=== PATIENT | female | born 1965 | race Caucasian/White ===

== ENCOUNTER 2018-03-27 09:34 | Emergency (ER) | payer BC, SELFPAY ==
[2018-03-27 09:35] VITALS: BP 161/100; PULSE 82; RESP 17; TEMP 37.3; O2SAT 95; BMI 32.5
--- NOTE | 2018-03-27 10:00 | ED.VISSUMM ---
- ER Visit Summary Date of Service: 03/27/18 Chief Complaint: Diffuse abdominal aching History of Present Illness: The patient is a 53 F past medical history of anemia and reflux. No prior abdominal surgeries. Patient states she had pain 1-2 weeks ago that resolved and then again occurred this morning at 3 AM. Associated nausea. No vomiting. No diarrhea or fever. Recently mild constipation but had relatively normal bowel movements yesterday. Denies melena but currently is on iron and her stools are dark. Denies any dysuria. Nothing particularly makes the pain better or worse. She says diffusely over her entire abdomen at times involves her flanks. No prior history. She denies any food intolerances. Physical Examination: Bone afebrile. She does not look septic or toxic. She is in no distress. H EENT exam unremarkable. Neck nontender. No lymphadenopathy. Lungs clear to auscultation bilaterally. Heart regular rhythm no murmur. Abdomen is soft, nondistended normal bowel sounds. There are no peritoneal signs. No hernias or masses. No signs of obstruction. There is no localizing tenderness to either the right upper nor the right lower quadrants. He states is diffusely uncomfortable. There is no pulsatile mass. She is moving all 4 extremities. They are neurovascularly intact. Back is nontender no CVA tenderness. Neurologically she is awake and alert with no focal motor deficits. Skin is unremarkable. Test Results: Chemistries normal. Normal gap and creatinine. Liver enzymes normal. Lipase normal. Serum test negative. Single view KUB of the abdomen shows. Consistent with constipation. No bowel obstruction. No free air. Read both by myself and the radiologist. Emergency Department Course and Treatment: Patient requested something for pain she will be given IV Toradol and Zofran IV for nausea. Treatment Plan: Repeat exam no change. No localizing tenderness. Discussed all test results and x-ray with the patient. She will be discharged with magnesium citrate. Increase her fluids. Increase her fiber. Stool softener as needed. Disposition: Discharge Impression: Acute abdominal pain secondary to constipation This note was generated with [employer] dictation software. It may contain incorrect words, spelling, and punctuation that were not noted in review of the chart prior to signing ED Disposition - Plan for ED Patient: Chief Complaint: Abd Pain Referrals: Ivana Sage MD [Primary Care Provider] -
[2018-03-27] MEDS: Ondansetron 4 MG/2 ML Vial IV (10:03)
[2018-03-27] MEDS: Ketorolac 30 MG/ML Syringe IV (10:03)
[2018-03-27 10:18] LABS: Absolute Lymphocyte Count 1.21 X10^3/ul (0.83-4.51); Absolute Neutrophil Count 9.3 X10^3/uL (2.0-7.7); Basophil# 0.02 X10^3/uL; Basophil% 0.2 % (0-1); Eosinophil# 0.02 X10^3/uL; Eosinophils% 0.2 % (0-5); Hematocrit 43.4 % (37-47); Hemoglobin 14.4 g/dl (12.0-15.0); Lymphocyte # 1.21 X10^3/ul (4.0); Lymphocyte % 11.1 % (19-41); Mean Corp Hgb Conc 33.2 g/gl (32-36); Mean Corpuscular Hgb 29.1 pg (27.0-32.0); Mean Corpuscular Volume 87.9 fL (81-99); Mean Platelet Vol. 9.7 fl (6.2-12.0); Monocyte# 0.37 X10^3/uL; Monocyte% 3.4 % (0-10); Neutrophil # 9.26 X10^3/uL (2.7-7.7); Neutrophil % 84.9 % (47-70); Platelet Count 200 K/mm3 (150-450); RBC Distribution Width CV 13.8 % (11.6-14.6); Red Blood Count 4.94 M/mm3 (4.2-5.4); White Blood Count 10.9 K/mm3 (4.4-11.0)
[2018-03-27 10:21] LABS: POSITIVE COUNT NO; POSITIVE DIFFERENTIAL NO; POSITIVE MORPHOLOGY NO
[2018-03-27 10:31] LABS: AST(SGOT) 18 U/L (15-37); Alanine Aminotransfer ALT/SGPT 37 U/L (13-56); Albumin, Serum 3.9 g/dL (3.2-5.0); Alkaline Phosphatase 96 U/L (45-117); Anion Gap 11 (5-15); BUN 17 mg/dL (7-18); BUN/Creat Ratio 23.3 RATIO (10-20); Bilirubin, Direct 0.16 mg/dL (0.00-0.30); Calcium,Total 9.4 mg/dL (8.5-10.1); Chloride 107 mmol/L (98-107); Creatinine, Serum 0.73 mg/dL (0.55-1.02); EST Glomerular Filtration Rate 88 mL/min (>60); Est Glom Filt Rate - Afr Amer 107 mL/min (>60); Estimated Creatinine Clearance 73.72 ml/min; Globulin 3.7 g/dL (2.2-4.2); Glucose 120 mg/dL (74-106); Lipase 119 U/L (73-393); Potassium 3.7 mmol/L (3.5-5.1); Protein, Total 7.6 g/dL (6.4-8.2); Sodium Level 141 mmol/L (136-145)
[2018-03-27 10:35] LABS: Mucous, Urine 0 SEEN /hpf (<or=2+)
[2018-03-27 10:39] LABS: Pregnancy, Serum, hCG Quali. NEGATIVE Negative (0-9 Nonpreg)
[2018-03-27 10:58] LABS: Color, Urine Yellow (Yellow); Glucose, Dipstick Normal (Normal); Ketone-Dipstick Negative (Negative); Leukocyte Esterase-Dipstick 25 /ul (Negative); Nitrite-Dipstick Negative (Negative); Occult Blood-Urine 10 /ul (Negative); Protein-Dipstick 15 mg/dl (Negative); Specific Gravity, Urine 1.015 (1.002-1.030); Urine Bilirubin Dipstick Negative (Negative); Urine Clarity Sl. Cloudy (Clear); Urine Urobilinogen Normal (Normal)
--- NOTE | 2018-03-27 11:18 | ED.DEP ---
ED Disposition - Plan for ED Patient: Disposition: Home or Assisted Living Chief Complaint: Abd Pain Instructions: ED Constipation Referrals: Ivana Sage MD [Primary Care Provider] - 3-5 Days if not improving Additional Instructions: Plenty of fluids, fiber and stool softener as needed. Magnesium citrate take the first bottle if no bowel movement within 2 hours take the second. Return if feeling worse.
[2018-03-27 11:23] VITALS: BP 158/95; PULSE 85; RESP 14; O2SAT 98
[2018-03-27] MEDS: Magnesium Citrate 300 ML PO (11:30)
[2018-03-27 11:34] LABS: Bacteria RARE /hpf (None Seen); Red Blood Cells-Urine 0-5 SEEN /hpf (0-5); Squamous Epithelial Cells - UA 0-5 SEEN /hpf (5-10); White Blood Cells 0-5 SEEN /hpf (0-5)
== END 2018-03-27 11:31 | disposition home or self-care (01) ==
PROVIDERS: Emergency Provider Emergency Medicine; Family Provider Internal Medicine; PCP Internal Medicine
DX: K59.00 Constipation, unspecified (principal); R10.84 Generalized abdominal pain; R11.0 Nausea; K21.9 Gastro-esophageal reflux disease without esophagitis; Z86.2 Personal history of diseases of the blood and blood-forming organs and certain disorders involving the immune mechanism
CPT/HCPCS: 74018; 80048; 80076; 81001; 83690; 84703; 85025; 96374; 96375; 99283; J2405

== ENCOUNTER 2018-04-18 03:06 | Emergency (ER) | payer BC, SELFPAY ==
[2018-04-18 03:06] VITALS: BP 160/94; PULSE 63; RESP 18; TEMP 36.4; O2SAT 96; BMI 32.4
--- NOTE | 2018-04-18 03:20 | CT_ITS ---
STUDY: CT ABDOMEN AND PELVIS WITH CONTRAST REASON FOR EXAM: Female, 53 years old. Abdominal pain RADIATION DOSAGE (If Supplied By Facility): CTDIvol = ( 16.88 ) mGy, DLP = ( 1215.16 ) mGycm TECHNIQUE: Transaxial images were obtained from the dome of the diaphragm to the symphysis pubis without oral contrast. 100ml ml of Isovue 300 contrast was administered. Sagittal and coronal images were reconstructed. Individualized dose optimization techniques were used for this CT. COMPARISON: None. FINDINGS: Bilateral dependent atelectasis at the lung bases. The visualized portions of the heart are within normal limits. Hypoattenuated lesion in the left lateral hepatic segment measuring near water density. Lipid laden stones and calcified stones seen within a nonthickened gallbladder. Normal spleen. Normal pancreas. Normal bilateral adrenal glands. Normal right kidney. Normal left kidney. Normal visualized stomach. Normal small intestine. Mild diverticular disease of the sigmoid colon without localized inflammation. The appendix is visualized and appears normal. Normal abdominal aorta. Normal inferior vena cava. Normal retroperitoneum. Normal urinary bladder. Uterus and bilateral adnexa are unremarkable. Normal abdominal wall. Normal osseous structures. CT/Abdomen/Pelvis W IV Cont ONLY IMPRESSION: 1. Cholelithiasis with no evidence of acute cholecystitis. 2. Cyst versus hemangioma within the left lateral hepatic segment. 3. Sigmoid colonic diverticulosis with no evidence of acute diverticulitis. Electronically Signed: Cesar Delgado MD at 4:12 EDT Tel , Service support ,
[2018-04-18 03:41] LABS: Absolute Lymphocyte Count 2.59 X10^3/ul (0.83-4.51); Absolute Neutrophil Count 3.8 X10^3/uL (2.0-7.7); Basophil# 0.04 X10^3/uL; Basophil% 0.6 % (0-1); Eosinophil# 0.19 X10^3/uL; Eosinophils% 2.7 % (0-5); Hematocrit 42.5 % (37-47); Hemoglobin 14.5 g/dl (12.0-15.0); Lymphocyte # 2.59 X10^3/ul (4.0); Lymphocyte % 36.5 % (19-41); Mean Corp Hgb Conc 34.1 g/gl (32-36); Mean Corpuscular Hgb 30.3 pg (27.0-32.0); Mean Corpuscular Volume 88.7 fL (81-99); Mean Platelet Vol. 9.4 fl (6.2-12.0); Monocyte# 0.44 X10^3/uL; Monocyte% 6.2 % (0-10); Neutrophil # 3.82 X10^3/uL (2.7-7.7); Neutrophil % 53.7 % (47-70); Platelet Count 170 K/mm3 (150-450); RBC Distribution Width CV 13.3 % (11.6-14.6); Red Blood Count 4.79 M/mm3 (4.2-5.4); White Blood Count 7.1 K/mm3 (4.4-11.0)
[2018-04-18 03:42] LABS: POSITIVE COUNT NO; POSITIVE DIFFERENTIAL NO; POSITIVE MORPHOLOGY NO
[2018-04-18 03:57] LABS: ALB/GLOB Ratio 1.1 RATIO (0.9-2.4); AST(SGOT) 14 U/L (15-37); Alanine Aminotransfer ALT/SGPT 30 U/L (13-56); Albumin, Serum 3.7 g/dL (3.2-5.0); Alkaline Phosphatase 94 U/L (45-117); Anion Gap 10 (5-15); BUN 20 mg/dL (7-18); BUN/Creat Ratio 22.4 RATIO (10-20); Calcium,Total 9.4 mg/dL (8.5-10.1); Chloride 107 mmol/L (98-107); Creatinine, Serum 0.89 mg/dL (0.55-1.02); EST Glomerular Filtration Rate 70 mL/min (>60); Est Glom Filt Rate - Afr Amer 85 mL/min (>60); Estimated Creatinine Clearance 60.47 ml/min; Globulin 3.5 g/dL (2.2-4.2); Glucose 101 mg/dL (74-106); Lipase 172 U/L (73-393); Potassium 3.7 mmol/L (3.5-5.1); Protein, Total 7.2 g/dL (6.4-8.2); Sodium Level 145 mmol/L (136-145)
[2018-04-18 03:59] LABS: Lactic Acid 1.1 mmol/L (0.4-2.0)
[2018-04-18] MEDS: Metoclopramide 10 MG/2 ML Vial IV (04:14)
--- NOTE | 2018-04-18 04:15 | ED.VISSUMM ---
- ER Visit Summary Date of Service: 04/18/18 Chief Complaint: Abdominal pain History of Present Illness: The patient is a 53 F who presents with abdominal pain. She states that this is the third episode recently she has had like this. She states that 2 weeks ago she was seen in the emergency department and negative labs and a negative x-ray though felt that she was having some constipation. The next day her symptoms improved. Tonight she drank some milk before bed and about 15 minutes later began to have abdominal discomfort. She describes it as an all over aching but she mostly points epigastric right upper quadrant. She said no vomiting no diarrhea. No fevers. Physical Examination: Afebrile vital signs are stable Gen: Well-nourished well-developed Head: Normocephalic atraumatic Eyes: Perrl EOMI ENT: TMs clear no rhinorrhea moist mucous membranes Neck: Supple no lymphadenopathy no JVD nontender CVS: Regular rate rhythm no murmurs normal S1-S2 Respiratory: No distress clear to auscultation bilaterally chest nontender Abdomen: Soft tenderness right upper quadrant epigastrium periumbilical without guarding or rebound nondistended normal bowel sounds no masses Back: Nontender Extremity: Nontender no edema Skin: Normal color no rash Neuro: alert orientated ?3 CN II-XII intact normal strength sensation reflexes gait cerebellar Psych: Normal affect normal mood Test Results: BC CMP and lipase were negative. CT of the pelvis demonstrates lipid and calcified gallstones. Emergency Department Course and Treatment: She received Reglan, Zofran and morphine. She will be referred to surgery for further evaluation return if worsening or concerns. Impression: 1. Cholelithiasis 2. Biliary colic This note was generated with [employer] dictation software. It may contain incorrect words, spelling, and punctuation that were not noted in review of the chart prior to signing ED Disposition - Plan for ED Patient: Disposition: Home or Assisted Living Chief Complaint: Abd Pain Instructions: Discharge Instructions for Gallstones Referrals: Cristi Warner MD [STAFF PHYSICIAN] - (CALL TO ARRANGE FOLLOW UP)
--- NOTE | 2018-04-18 04:22 | ED.DCSUM_ITS ---
- ER Visit Summary Date of Service: 04/18/18 Chief Complaint: Abdominal pain History of Present Illness: The patient is a 53 F who presents with abdominal pain. She states that this is the third episode recently she has had like this. She states that 2 weeks ago she was seen in the emergency department and negative labs and a negative x-ray though felt that she was having some constipation. The next day her symptoms improved. Tonight she drank some milk before bed and about 15 minutes later began to have abdominal discomfort. She describes it as an all over aching but she mostly points epigastric right upper quadrant. She said no vomiting no diarrhea. No fevers. Physical Examination: Afebrile vital signs are stable Gen: Well-nourished well-developed Head: Normocephalic atraumatic Eyes: Perrl EOMI ENT: TMs clear no rhinorrhea moist mucous membranes Neck: Supple no lymphadenopathy no JVD nontender CVS: Regular rate rhythm no murmurs normal S1-S2 Respiratory: No distress clear to auscultation bilaterally chest nontender Abdomen: Soft tenderness right upper quadrant epigastrium periumbilical without guarding or rebound nondistended normal bowel sounds no masses Back: Nontender Extremity: Nontender no edema Skin: Normal color no rash Neuro: alert orientated ?3 CN II-XII intact normal strength sensation reflexes gait cerebellar Psych: Normal affect normal mood Test Results: BC CMP and lipase were negative. CT of the pelvis demonstrates li pid and calcified gallstones. Emergency Department Course and Treatment: She received Reglan, Zofran and morphine. She will be referred to surgery for further evaluation return if worsening or concerns. Impression: 1. Cholelithiasis 2. Biliary colic This note was generated with [employer] dictation software. It may contain incorrect words, spelling, and punctuation that were not noted in review of the chart prior to signing ED Disposition - Plan for ED Patient: Disposition: Home or Assisted Living Chief Complaint: Abd Pain Instructions: Discharge Instructions for Gallstones Referrals: Cristi Warner MD [STAFF PHYSICIAN] - (CALL TO ARRANGE FOLLOW UP)
[2018-04-18 04:30] VITALS: PULSE 78; RESP 14; O2SAT 100
[2018-04-18] MEDS: Morphine 4 MG/ML Syringe IV (04:41)
[2018-04-18] MEDS: Ondansetron 4 MG/2 ML Vial IV (04:41)
== END 2018-04-18 04:57 | disposition home or self-care (01) ==
PROVIDERS: Emergency Provider Emergency Medicine; Family Provider Internal Medicine; PCP Internal Medicine
DX: K80.70 Calculus of gallbladder and bile duct without cholecystitis without obstruction (principal); K21.9 Gastro-esophageal reflux disease without esophagitis; Z79.899 Other long term (current) drug therapy
CPT/HCPCS: 74177; 80053; 83605; 83690; 85025; 96374; 96375; 99283; Q9967; A4216; J2405

== ENCOUNTER 2018-12-12 08:22 | Emergency (ER) | payer BC, SELFPAY ==
[2018-12-12 08:23] VITALS: BP 154/98; PULSE 79; RESP 16; TEMP 36.6; O2SAT 94; BMI 30.8
--- NOTE | 2018-12-12 08:34 | CT_ITS ---
STUDY: CTA OF THE BRAIN REASON FOR EXAM: Female, 53 years old. 3 week history of left-sided headaches and nausea. History of meningioma. RADIATION DOSAGE (If Supplied By Facility): CTDIvol = ( 28.20 ) mGy, DLP = ( 1449.88 ) mGycm TECHNIQUE: CT angiography was performed with a multi-detector CT scanner. Data acquisition was obtained from the skull base through the vertex following intravenous administration of 100 IV Isovue 370. MIP images were reconstructed from the axial data set. Post-processing of the angiographic images was performed, with multiplanar reformation and 3D reconstruction. Individualized dose optimization techniques were used for this CT. COMPARISON: None. FINDINGS: Normal bilateral petrous carotid arteries. Normal right cavernous carotid artery with a normal supraclinoid bifurcation. Normal left cavernous carotid artery with a normal supraclinoid bifurcation. Normal right A1 segments of the anterior cerebral artery. Normal left A1 segments of the anterior cerebral artery. Normal intact anterior communicating artery (ACOM). Normal bilateral A2 segments of the anterior cerebral arteries. Normal right M1 and M2 segments of the middle cerebral arteries, with a normal M1 bifurcation. Normal left M1 and M2 segments of the middle cerebral arteries, with a normal M1 bifurcation. Normal right posterior communicating artery (PCOM). Normal left posterior communicating artery (PCOM). Normal bilateral vertebral arteries. Normal basilar artery with a normal basilar bifurcation. The visualized bilateral superior cerebellar (SCA) arteries are normal. Normal bilateral P1, P2 and visualized P3 segments of the posterior cerebral arteries. There is no demonstrated aneurysm of the [place]. The patient is status post left parietal craniotomy. IMPRESSION: Normal [place] without a demonstrated aneurysm or hemodynamically significant stenosis. Electronically Signed: Christopher Fry, at 10:41 EDT , Service support , STUDY: CT BRAIN WITHOUT CONTRAST REASON FOR EXAM: Female, 53 years old. 3 week history of left-sided headaches. History of prior meningioma. RADIATION DOSAGE (If Supplied By Facility): CTDIvol = ( ) mGy, DLP = ( ) mGycm TECHNIQUE: Transaxial CT imaging of the brain was performed without administration of intravenous contrast material. Individualized dose optimization techniques were used for this CT. COMPARISON: No relevant priors. FINDINGS: Normal soft tissue structures. The patient is status post left parietal craniotomy. Normal size ventricles and extra-axial spaces for the patient's age. Normal white matter tracts of the cerebral hemispheres. Normal basal ganglia and thalami. Normal brainstem. Normal cerebellum. There is no intracranial hemorrhage. There are no findings of an acute ischemic infarction. Normal visualized paranasal sinuses. CT/CTA Head W/WO Contrast IMPRESSION: Normal unenhanced CT scan of the brain. Electronically Signed: Christopher Fry, at 10:42 EDT , Service support ,
--- NOTE | 2018-12-12 08:34 | CT_ITS ---
STUDY: CTA NECK WITH CONTRAST REASON FOR EXAM: Female, 53 years old. 3 week history of left-sided headaches. Nausea. History of prior meningioma resection. RADIATION DOSAGE (If Supplied By Facility): CTDIvol = ( 28.20 ) mGy, DLP = ( 1449.88 ) mGycm TECHNIQUE: CT angiography with multi-detector data acquisition was performed from the aortic arch to the skull base following intravenous administration of 100 IV Isovue 370. MIP images were reconstructed from the axial data set. Post-processing of the angiographic images was performed, with multiplanar reformation and 3D reconstruction. Individualized dose optimization techniques were used for this CT. COMPARISON: None. FINDINGS: AORTIC ARCH: Normal visualized aortic arch. Normal origins of the brachiocephalic, left common carotid, and left subclavian arteries. RIGHT CAROTID ARTERIES: Normal right common carotid artery (CCA). Normal right common carotid bulb. Normal origin of the right internal carotid (ICA) artery without a hemodynamically significant stenosis. Normal visualized cervical portion of the right internal carotid artery. Normal origin of the right external carotid artery (ECA). LEFT CAROTID ARTERIES: Normal left common carotid artery (CCA). Normal left common carotid bulb. Normal origin of the left internal carotid (ICA) artery without a hemodynamically significant stenosis. Normal visualized cervical portion of the left internal carotid artery. Normal origin of the left external carotid artery (ECA). VERTEBRAL ARTERIES: Normal bilateral vertebral arteries. CT/CTA Neck W/WO Contrast IMPRESSION: Normal bilateral cervical carotid and vertebral arteries. Electronically Signed: Christopher Fry, at 10:43 EDT , Service support ,
[2018-12-12] MEDS: 0.9% Normal Saline 1,000 ML 150 ML IV (08:51)
--- NOTE | 2018-12-12 09:04 | ED.DCSUM_ITS ---
- ER Visit Summary Date of Service: 12/12/18 Chief Complaint: [Headache] History of Present Illness: The patient is a 53 F [ presents the emergency department with a headache that started 3 weeks ago. Patient states she woke up with a headache 3 weeks ago. Patient states that headache seems to be worse at night and when laying flat. Patient having a hard time sleeping at night secondary to pain. Patient has been seen by the nurse practitioner in the primary care physician's office x2 and has a CT scan of her head scheduled but not for another week. Patient denies any falls or head injuries. Patient does have history of a meningioma resection from the left side of her brain about 9 years ago. She denies any recent fever or illness. Patient complains of minimal photophobia. She is had mild nausea but no vomiting. No real history of migraines. Patient did take Toradol and ibuprofen this morning so she rates her headache is mild at this time. Headache only seems to involve the left side of her head and at times will radiate into the left side of her neck.] There are times during the day where her headache completely resolves with ibuprofen. Physical Examination: [HEENT-PERRLA, EOMI. Cranial nerves II through XII grossly intact. TMs clear. Mucous membranes moist. No adenopathy. Cardiovascular-regular rate and rhythm without murmur or ectopy Lungs-clear to auscultation, chest wall stable without crepitus or subcu emphysema Abdomen-normoactive bowel sounds, soft, nontender, no rebound or rigidity, no peritoneal signs. Neuro sptq-riwdgv-bett and heel rubi testing within normal limits, negative Romberg, negative pronator drift, fundi benign Extremities-intact ?4, normal range of motion, normal pulses, atraumatic] Test Results: [CBC with differential showed a white count of 7.5, hemoglobin 14.8, hematocrit 42. Chemistries unremarkable. Sed rate was normal at 10. CTA of the brain and neck showed prior left-sided craniotomy otherwise nothing acute.] Emergency Department Course and Treatment: [Patient initially given a liter normal same fluid bolus as well as Reglan and Benadryl. Patient continued complaint of headache and was given 4 mg of morphine and another 25 mg of Benadryl. His headache did improve.] Treatment Plan: [Case was discussed with Dr. Tan who would be happy to see patient in the office for follow-up and asked that I start patient on Topamax 25 mg twice daily.] Disposition: [Discharged home in stable condition. Patient advised to return if worsening headache, difficulty with balance or speech, or condition should worsen anyway.] Impression: [Cephalgia] This note was generated with [employer] dictation software. It may contain incorrect words, spelling, and punctuation that were not noted in review of the chart prior to signing ED Disposition - Plan for ED Patient: Referrals: Ivana Sage MD [Primary Care Provider] -
[2018-12-12 09:22] LABS: Anion Gap 8 (5-15); BUN 14 mg/dL (7-18); BUN/Creat Ratio 21.8 RATIO (10-20); Calcium,Total 9.5 mg/dL (8.5-10.1); Chloride 105 mmol/L (98-107); Creatinine, Serum 0.64 mg/dL (0.55-1.02); EST Glomerular Filtration Rate 102 mL/min (>60); Est Glom Filt Rate - Afr Amer 124 mL/min (>60); Estimated Creatinine Clearance 84.09 ml/min; Glucose 106 mg/dL (74-106); Potassium 3.3 mmol/L (3.5-5.1); Sodium Level 141 mmol/L (136-145)
[2018-12-12 09:27] LABS: Erythrocyte Sedimentation Rate 10 mm/hr (0-30)
[2018-12-12 09:40] LABS: Absolute Lymphocyte Count 1.75 X10^3/ul (0.83-4.51); Absolute Neutrophil Count 5.1 X10^3/uL (2.0-7.7); Basophil# 0.02 X10^3/uL; Basophil% 0.3 % (0-1); Eosinophil# 0.18 X10^3/uL; Eosinophils% 2.4 % (0-5); Hematocrit 42.4 % (37-47); Hemoglobin 14.8 g/dl (12.0-15.0); Lymphocyte # 1.75 X10^3/ul (4.0); Lymphocyte % 23.4 % (19-41); Mean Corp Hgb Conc 34.9 g/gl (32-36); Mean Corpuscular Hgb 30.5 pg (27.0-32.0); Mean Corpuscular Volume 87.2 fL (81-99); Mean Platelet Vol. 9.5 fl (6.2-12.0); Monocyte# 0.47 X10^3/uL; Monocyte% 6.3 % (0-10); Neutrophil # 5.05 X10^3/uL (2.7-7.7); Neutrophil % 67.5 % (47-70); Platelet Count 195 K/mm3 (150-450); RBC Distribution Width SD 41.4 fl (35.1-43.9); Red Blood Count 4.86 M/mm3 (4.2-5.4); White Blood Count 7.5 K/mm3 (4.4-11.0)
[2018-12-12] MEDS: 0.9% Normal Saline 1,000 ML 999 ML IV (09:40)
[2018-12-12] MEDS: DiphenhydrAMINE 50 MG/ML Syringe 25 MG IV (09:40)
[2018-12-12 09:41] LABS: POSITIVE COUNT NO; POSITIVE DIFFERENTIAL NO; POSITIVE MORPHOLOGY NO
[2018-12-12] MEDS: Metoclopramide 10 MG/2 ML Vial IV (09:41)
--- NOTE | 2018-12-12 10:04 | ED.RN ---
PT RATES PAIN AT A 1. WOULD LIKE TO STOP FLUID FOR A BIT. FIRST BOLUS COMPLETED
--- NOTE | 2018-12-12 11:27 | ED.DEP ---
ED Disposition - Plan for ED Patient: Instructions: ED Cephalgia Unspecified Prescriptions: Topiramate [Topamax] 25 mg PO BID #30 tab Referrals: Ivana Sage MD [Primary Care Provider] - Gustavo Tan MD [STAFF PHYSICIAN] - 5-7 Days
== END 2018-12-12 12:18 | disposition home or self-care (01) ==
LOC: ED 08:50
PROVIDERS: Emergency Provider Emergency Medicine; Family Provider Internal Medicine; PCP Internal Medicine
DX: R51 Headache (principal); H53.149 Visual discomfort, unspecified; R11.0 Nausea; I10 Essential (primary) hypertension; Z86.011 Personal history of benign neoplasm of the brain; Z79.899 Other long term (current) drug therapy
CPT/HCPCS: 70496; 70498; 80048; 85025; 85652; 96361; 96374; 96375; 99283; J7030; Q9967; A4216

== ENCOUNTER 2019-05-03 09:23 | Emergency (ER) | payer BC, SELFPAY ==
[2019-05-03 09:24] VITALS: BP 155/95; PULSE 85; RESP 14; TEMP 36.2; O2SAT 97; BMI 31.6
--- NOTE | 2019-05-03 09:49 | EKG12_ITS ---
Test Reason : CP Blood Pressure : / mmHG Vent. Rate : 081 BPM Atrial Rate : 081 BPM P-R Int : 178 ms QRS Dur : 088 ms QT Int : 398 ms P-R-T Axes : 031 -09 001 degrees QTc Int : 462 ms Normal sinus rhythm Normal ECG Confirmed by SATNAM JOHNSON, OSKAR ([id number]), acquisition editor SHAILESH KATE ([id number]) on 05/09/2019 10:54:14 AM Referred By: DANAE Confirmed By:DANNA HAY MD
--- NOTE | 2019-05-03 10:03 | ED.DCSUM_ITS ---
History of Present Illness Chief Complaint: Chest Pain Detail of Chief Complaint: Right sided chest pain and shoulder pain Informant: Patient Onset: Yesterday - At approximately 1700 Context: Sudden Onset Timing: Continuous - Shoulder pain has been continuous there has been periods of no discomfort right chest Quality: Pain Location: Anterior right chest and shoulder Current Severity: Mild Maximum Severity: Moderate Worsened by: Shoulder pain worse with movement chest pain no exacerbating fac tors Relieved by: Chest pain resolved with ibuprofen shoulder pain better Associated Symptoms: No associated symptoms Narrative: Patient is a middle-age woman who presents with anterior right chest pain that started yesterday evening at 1700. She is status post cholecystectomy May 2018. She denies any URI symptoms in the past week. She denies pleuritic chest pain. Denies history of PE or DVT. She has no risk factors for either. She denies leg pain, swelling discoloration. There is no history of trauma. She has no history of shoulder problems. She states she may have injured it several years ago. She denies paresthesia, anesthesia motor weakness. She denies rash. Prior similar symptoms: No Recent Illness/Hospitalization: No - Past Medical History (1) Chronic GERD Status: Chronic (2) Intracranial meningioma Status: Chronic (3) Mixed anxiety and depressive disorder Status: Chronic Past Medical History - Allergies and Home Meds Allergies/Adverse Reactions: Allergies trazodone Adverse Reaction (Verified 05/03/19 09:24) Other GENERALIZED PAIN Primary Care Physician: Ivana Sage MD [Primary Care Provider] - Prior records reviewed: Yes Surgical History: cholecystectomy Lives: Spouse/ Significant Other Smoking Status: Never smoker Alcohol: Rare Drugs: None Review of Systems General: Denies: Chills, Fever, Subjective, Sweats Eyes: Denies: Visual changes - bilaterally, Blurred Vision - bilaterally, Diplopia ENT: Denies: Bilateral ear pain, Rhinorrhea, Sore throat Cardiovascular: Reports: Chest pain. Denies: Palpitations, Heart racing, -, - Respiratory: Denies: Dyspnea, Cough, Dyspnea on exertion Gastrointestinal: Denies: Abdominal pain, Nausea, Vomiting, Diarrhea, Melena, Hematochezia Genitourinary: Denies: Dysuria, Hematuria, Frequency Musculoskeletal: Reports: Extremity Pain. Denies: Myalgias, Arthralgias, Neck pain, Back pain, Swelling, -, - Skin: Denies: Rash, Wounds Neurological: Denies: Headache, Weakness, Numbness Hematologic: Denies: Easy bruising, Easy bleeding Allergy: Denies: Uticaria, Swelling of the mouth Physical Exam Vital Signs/Narrative: Vital Signs Temp Pulse Resp BP Pulse Ox 05/03/19 09:24 97.1 F L 85 14 155/95 H 97 Inital Vital Signs reviewed: Yes General: Well nourished, Well developed, No Acute Distress Head: Normocephalic, Atraumatic Eyes: Perrl, EOMI ENT: Moist mucous membranes, No rhinorrhea Neck: Supple, Nontender Cardiovascular: Regular rate, Regular rhythm, No murmurs, Normal S1, Normal S2 Respiratory: No distress, CTA bilaterally, Chest nontender Abdomen: Soft, Nontender, Nondistended, Normal bowel sounds Back: Nontender, Normal Inspection Extremities: Nontender, No edema, - - There is no asymmetry, swelling, discoloration, leg vein distention, palpable cords or tenderness along the distribution of the deep venous system.There is pain palpation over the right trapezius. Passive range of motion causes discomfort. Axillary, median, radial and ulnar function intact. Radial pulses palpable and 2+ Skin: Normal color, No rash Neurological: Alert, Oriented x3, Cranial nerves II-XII grossly intact, Normal Strength, Normal Sensation, Normal DTR Psychological: Normal affect, Normal Mood Diagnostic/Tx/Re-eval Laboratory Results 05/03/19 10:00 Troponin I < 0.015 - Rhythm Strip Rhythm Strip: Sinus Rhythm Rate: 78 Ectopy: None - EKG Initial EKG Interpretation: Sinus Rhythm - Sinus rhythm with a ventricular rate of 81. DE interval is 178 ms. QS duration 80 ms. QT duration 398 ms. [place] is normal. The EKG is normal. - Medical Decision Making Differential diagnosis includes noncardiac chest pain, muscle skeletal pain since she is a middle-age woman will obtain EKG and troponin to evaluate for atypical cardiac presentation. Since there is no history of trauma imaging was not obtained. With a normal EKG, normal troponin with greater than 12 hours of pain and a heart score of 1 patient can be discharged home. In my professional opinion this is not cardiac chest pain but in all likelihood muscle skeletal shoulder/chest pain. ED Disposition - Plan for ED Patient: Disposition: Home or Assisted Living Diagnosis: Right-sided chest pain, Right shoulder pain Instructions: SHOULDER PAIN (Uncertain Cause), CHEST PAIN, NonCardiac Referrals: Ivana Sage MD [Primary Care Provider] - 3-5 Days if not improving Additional Instructions: Recommend ice, rest and anti-inflammatory. If you have ibuprofen 4 tablets every 8 hours for the next 3 to 5 days. If you have Aleve, 2 tablets every 12 hours for the next 3 to 5 days
[2019-05-03 11:17] VITALS: BP 97/63; PULSE 59; RESP 12; O2SAT 98
[2019-05-03 11:31] VITALS: BP 114/71; PULSE 66; RESP 20; O2SAT 92
== END 2019-05-03 11:34 | disposition home or self-care (01) ==
PROVIDERS: Emergency Provider Emergency Medicine; Family Provider Internal Medicine; PCP Internal Medicine
DX: R07.89 Other chest pain (principal); M25.511 Pain in right shoulder; K21.9 Gastro-esophageal reflux disease without esophagitis; D32.0 Benign neoplasm of cerebral meninges; F41.8 Other specified anxiety disorders; Z79.899 Other long term (current) drug therapy
CPT/HCPCS: 84484; 93005; 99284; A4216

== ENCOUNTER → 2019-09-14 | Outpatient (CLI) | payer BC, SELFPAY ==
--- NOTE | 2019-09-14 13:00 | EMB_PTH ---
PATIENT: ONELIA BRIDGES LOC: [facility] U#:[id number] AGE/SX: 54/F ROOM: RE09/14/[address]: Dr. Fletcher Aldrich MD : 1965 BED: DIS: 09/14/2019 SPEC #: [id number] RECD: 09/14/19 15:45 STATUS: WON REPatricia #: [id number] JULEE: 09/14/19 13:[address]: Fletcher Aldrich DEPT: SURGICAL PATHOLOGY RECD BY: Mulugeta Smith ENTERED: 09/17/19 08:52 SP TYPE: ENDOM BX/C NEERU DR: Dr. Ivana Sage MD Tissues: Endometrium, NOS Procedures: Surgery Specimen Level IV HEADER OPERATION: Endometrial biopsy PRE-OP DIAGNOSIS: N95.0 TISSUE SUBMITTED: Endometrial biopsy MICROSCOPIC DIAGNOSIS Endometrial biopsy: Proliferative endometrium. SJ:felisa 09/18/19 MICROSCOPIC DESCRIPTION Slides are reviewed. GROSS DESCRIPTION Received in fixative is one container labeled with the patient's name and designated EM biopsy. The specimen consists of multiple fragments of hemorrhagic soft tissue that in aggregate measure 2.5 x 1 x 0.1 cm. The specimen is totally submitted in one cassette. / SJ:felisa 09/17/19 TC:4 CPT: 46043
[2019-09-18 12:37] LABS: HPV Reflexed? NOT INDICATED
== END | disposition home or self-care (01) ==
LOC: LABSPEC 14:03
PROVIDERS: PCP Internal Medicine; Visit Provider Obstetrics & Gynecology
DX: N95.0 Postmenopausal bleeding (principal); Z12.4 Encounter for screening for malignant neoplasm of cervix
CPT/HCPCS: 88175; 88305; G0145

== ENCOUNTER → 2020-04-28 08:42 | Outpatient (CLI) | payer BC, SELFPAY ==
[2020-04-28 10:03] LABS: Absolute Lymphocyte Count 1.69 X10^3/uL (0.83-4.51); Absolute Neutrophil Count 3.6 X10^3/uL (2.0-7.7); Basophil# 0.04 X10^3/uL; Basophil% 0.7 % (0-1); Eosinophil# 0.21 X10^3/uL; Eosinophils% 3.6 % (0-5); Hematocrit 45.1 % (37-47); Hemoglobin 14.8 g/dL (12.0-15.0); Lymphocyte # 1.69 X10^3/ul (4.0); Lymphocyte % 28.6 % (19-41); Mean Corp Hgb Conc 32.8 g/dL (32-36); Mean Corpuscular Hgb 29.9 pg (27.0-32.0); Mean Corpuscular Volume 91.1 fL (81-99); Mean Platelet Vol. 9.7 fl (6.2-12.0); Monocyte% 6.8 % (0-10); NRBC Flagged by Analyzer 0 % (0-5); Neutrophil # 3.55 X10^3/uL (2.7-7.7); Platelet Count 220 K/mm3 (150-450); RBC Distribution Width CV 13.2 % (11.6-14.6); RBC Distribution Width SD 43.9 fl (35.1-43.9); Red Blood Count 4.95 M/mm3 (4.2-5.4); White Blood Count 5.9 K/mm3 (4.4-11.0)
[2020-04-28 10:10] LABS: Erythrocyte Sedimentation Rate 3 mm/hr (0-30)
[2020-04-28 10:12] LABS: AST(SGOT) 18 U/L (15-37); Alanine Aminotransfer ALT/SGPT 44 U/L (13-56); Albumin, Serum 3.6 g/dL (3.2-5.0); Alkaline Phosphatase 86 U/L (45-117); Anion Gap 4 (5-15); BUN 12 mg/dL (7-18); BUN/Creat Ratio 16.9 RATIO (10-20); Chloride 106 mmol/L (98-107); Cholesterol 152 mg/dL (200); Creatinine, Serum 0.71 mg/dL (0.55-1.02); EST Glomerular Filtration Rate 91 mL/min (>60); Est Glom Filt Rate - Afr Amer 110 mL/min (>60); Ferritin 30 ng/mL (8-252); Globulin 3.5 g/dL (2.2-4.2); Glucose 89 mg/dL (74-106); High Density Lipoprotein 61 mg/dL; Iron 87 ug/dL (50-170); Potassium 3.6 mmol/L (3.5-5.1); Protein, Total 7.1 g/dL (6.4-8.2); Sodium Level 140 mmol/L (136-145); Thyroid Stim Hormone (TSH) 1.42 uIU/mL (0.358-3.74); Triglycerides 137 mg/dL; Very Low Density Lipoprotein 27 mg/dL (5-40)
[2020-04-28 10:33] LABS: Vitamin B12 673 pg/mL (211-911); Vitamin D,25 Hydroxy 32.8 ng/mL
== END ==
PROVIDERS: PCP Internal Medicine; Visit Provider Family Medicine
DX: D64.9 Anemia, unspecified (principal); R53.83 Other fatigue; Z13.220 Encounter for screening for lipoid disorders
CPT/HCPCS: 36415; 80053; 80061; 82306; 82607; 82728; 83540; 84443; 85025; 85652

== ENCOUNTER → 2021-04-14 12:43 | Outpatient (CLI) | payer BC, SELFPAY | PROVIDERS: PCP Internal Medicine; Referring Provider Family Medicine; Visit Provider Family Medicine | DX: Z71.89 Other specified counseling (principal) | CPT/HCPCS: 86769 ==

== ENCOUNTER → 2021-04-24 13:05 | Outpatient (CLI) | payer BC, SELFPAY ==
[2021-04-24 15:30] LABS: Hematocrit 43.3 % (37-47); Hemoglobin 14.3 g/dL (12.0-15.0); Mean Corpuscular Hgb 29.9 pg (27.0-32.0); Mean Corpuscular Volume 90.4 fL (81-99); Mean Platelet Vol. 9.7 fl (6.2-12.0); Platelet Count 208 K/mm3 (150-450); RBC Distribution Width CV 12.8 % (11.6-14.6); RBC Distribution Width SD 42.1 fl (35.1-43.9); Red Blood Count 4.79 M/mm3 (4.2-5.4); White Blood Count 5.8 K/mm3 (4.4-11.0)
[2021-04-24 15:38] LABS: Prothrombin Time (Protime)PT. 12.4 SECONDS (11.7-14.9)
[2021-04-24 15:58] LABS: Anion Gap 5 (5-15); BUN 14 mg/dL (7-18); BUN/Creat Ratio 20.9 RATIO (10-20); Calcium,Total 9.3 mg/dL (8.5-10.1); Chloride 111 mmol/L (98-107); Creatinine, Serum 0.67 mg/dL (0.55-1.02); EST Glomerular Filtration Rate 97 mL/min (>60); Est Glom Filt Rate - Afr Amer 117 mL/min (>60); Glucose 83 mg/dL (74-106); Potassium 4.1 mmol/L (3.5-5.1); Sodium Level 141 mmol/L (136-145)
== END ==
PROVIDERS: PCP Internal Medicine; Referring Provider Family Medicine; Visit Provider Family Medicine
DX: Z01.818 Encounter for other preprocedural examination (principal)
CPT/HCPCS: 36415; 80048; 85027; 85610; 85730

== ENCOUNTER 2021-05-08 05:50 | Day surgery (SDC) | payer BC, SELFPAY ==
[2021-05-08] VITALS (10 sets, daily range): BP systolic 110–142; BP diastolic 71–95; PULSE 70–86; RESP 16–18; TEMP 36.1–36.7; O2SAT 92–98; BMI 34.9
[2021-05-08] MEDS: Lactated Ringers 1,000 ML 100 ML IV ×2 (06:40→09:01)
[2021-05-08] MEDS: Cefazolin 2 GM in 0.9% Normal Saline 100 ML IV (07:26)
--- NOTE | 2021-05-08 07:30 | RAD_ITS ---
STUDY: X-RAY - LEFT ANKLE REASON FOR EXAM: Intraoperative fluoroscopy for calcaneal osteotomy. TECHNIQUE: 8 intraoperative images of the ankle/foot. COMPARISON: None. FINDINGS: There are 2 orthopedic screws transfixing a calcaneal osteotomy. 146 seconds of fluoroscopy time was used. Electronically Signed: Samuel Mary MD at 10:47 EDT Tel , Service support , RAD/Ankle min 3 Views
--- NOTE | 2021-05-08 07:30 | TESH_PTH ---
PATIENT: ONELIA BRIDGES LOC: [facility] [place] U[place][id number] AGE/SX: 56/F ROOM: RE05/08/[address]: Dr. Violetta Jordan DPM : 1965 BED: DIS: 05/08/2021 SPEC #: [id number] RECD: 05/08/21 13:04 STATUS: WON KRISTAN #: [id number] JULEE: 05/08/21 07:[address]: Violetta Jordan DEPT: SURGICAL PATHOLOGY RECD BY: Mandie Amin ENTERED: 05/08/21 13:24 SP TYPE: TENDON OTHR DR: Dr. Gaurav Chapa MD Tissues: Tendon and tendon sheath, NOS Procedures: Surgery Specimen Level III HEADER OPERATION: Lower extremity repair, tibialis tendon with internal brace PRE-OP DIAGNOSIS: Left posterior tibialis repair TISSUE SUBMITTED: Diseased posterior tibialis tendon, left lower extremity MICROSCOPIC DIAGNOSIS Diseased posterior tibialis tendon, left lower extremity: Fragments of dense fibroconnective tissue with reactive changes. DANAE:felisa 05/11/2021 MICROSCOPIC DESCRIPTION Slides are reviewed. GROSS DESCRIPTION Received in fixative is one container labeled with the patient's name and designated diseased posterior tibialis tendon, left lower extremity. The specimen consists of three pieces of perea, indurated tissue that in aggregate measure 3 x 2 x 0.3 cm. The specimen is totally submitted in one cassette. / DANAE:felisa 05/08/21 TC:5 CPT: 02409
[2021-05-08] MEDS: Bupivacaine Mpf 0.5% 30 ML VIAL (10:42)
[2021-05-08] MEDS: Lidocaine 1% (30 ml sdv) 30 ML Vial (10:42)
--- NOTE | 2021-05-08 10:50 | OP.PCM_ITS ---
Problems Associated Problem List Diagnoses (1) Left foot pain: (2) Tibialis posterior tendon tear, nontraumatic: (3) Flat foot [pes planus] (acquired), left foot: Report of Operation Date of Procedure: 05/08/21 Pre-Operative Diagnosis: Posterior tibialis tendon tear, left Symptomatic flatfoot, left foot Post-Operative Diagnosis: Posterior tibialis tendon tear and tenosynovitis, left Symptomatic flatfoot, left foot Surgery/Procedure Performed:: 1. Medial calcaneal osteotomy with internal fixation, left 2. Repair of posterior tibialis tendon tear and tenosynovectomy, left 3. Spring ligament augmentation with internal brace, left Description of Surgical Findings:: Hemostasis: Well-padded pneumatic left thigh tourniquet, 300 mmHg, 120 minutes Materials: one 7.0 FT Arthrex compression screw, one 5.0 FT Arthrex compression screw, Arthrex internal brace, 3-0 and 2-0 Vicryl, 3-0 and 4-0 nylon Specimens: Diseased posterior tibialis tendon, left Complications: None The patient tolerated the procedure and anesthesia well. The patient was transported to the PACU with vital signs stable and vascular status intact to the surgical limb. To ice and elevate for pain and inflammation management. Postoperative x-rays were reviewed prior to leaving the operating room. Deformity correction was improved with reduced Meary angle, rectus hindfoot position, and continued coverage of talar head. Internal fixation is in the desired position and trajectory. No acute injuries are noted. Postoperative orders were entered electronically. Surgeon: Violetta Jordan bilingual speech therapist: None (Won Feng DPM, PGY3) Type of Anesthesia: General and Local (Preoperative: 16 cc One-to-one mixture of 1% lidocaine plain and 0.5% Marcaine plain typical left ankle block fashion. Postoperative: 14 cc same mixture local infiltrative fashion left foot and ankle) Specimen's removed: Diseased posterior tibialis tendon, left Drains: None Estimated Blood Loss (mL): 150 mL Description of Procedure: Indications: This 56-year-old female with significant past medical history of hypertension continues to complain of progressive flatfoot deformity with pain along the inner ankle extending into the arch area. This has been progressively worsening over the past several years. She does recall she had a contralateral limb flatfoot reconstruction with repair of posterior tibial tendon many years ago. She is unable to bear weight now on the left lower extremity without pain, and has failed conservative care including bracing, exercises, rest, activity modification, shoe gear updates, and medications. Her pain is affecting her ability to complete her daily activities and she elects proceed forward with surgical intervention at this time. Her neurovascular status is intact. She does have a flexible reducible flatfoot deformity in which the midtarsal joint does appear to be stable with the subtalar joint in a neutral position. Once sedated, she was also tested with the Silfverskiold test in which pronounced equinus was not noted. She had reproducible palpation pain along the posterior tibialis tendon extending from the medial malleolus to just distal to the navicular tuberosity insertion. She does not appear to have any lateral impingement syndrome. In stance, she does have pronounced decreased medial longitudinal arch and hindfoot valgus. She does not appear to have too many toe sign. She was not also unable to perform a single-leg heel rise test due to pain and there is also no hindfoot inversion noted. Preoperative H&P were reviewed including her diagnostic data. There was no gross abnormalities noted with labs or preoperative EKG. Preoperative indications, planned procedure, benefits, risk, anticipated healing time and management were reviewed. The patient understands and elects proceed with surgery at this time. No guarantees were made. The patient understands risk and complications include but are not limited to following: pain, swelling, sc arring, need for further surgery, tendon contracture, transfer lesion, hardware failure, arthritis, need for further surgery, delayed or nonhealing, infection, blood clot, allergic reaction, loss of limb, function, or life. The informed surgical limb and consent were signed. I answered all the patient's questions. Her clearance was reviewed from her primary care physician, Dr. Chapa including history and physical exam. The patient also understands there is an inherent risk with being in the hospital and undergoing a procedure during the time of COVID-19 pandemic. The patient understands precautions are being taken to prevent transmission. This patient understands the benefits and risks of having a procedure at this time versus waiting in which the benefits are reasonable at this time. Procedure in detail: The patient was transported to the operating room via cart and placed on the operating room table in supine position. Final verification of the patient, surgery, limb designation was performed via the timeout procedure. She was bumped to allow surgical limb good exposure. A well-padded pneumatic left thigh tourniquet was placed. Preoperative antibiotics were administered by the anesthesia team. General anesthesia was initiated by the anesthesia team. The podiatry team administered the local anesthetic to the left lower extremity as noted. The left lower extremity was prepped and draped in the usual aseptic manner. An Esmarch bandage was used to exsanguinate the limb and the tourniquet was inflated at this time. The surgery began as the following: Attention was first directed to the lateral hindfoot in which an oblique incision was made over the lateral calcaneal wall through the skin. Blunt dissection was performed down to the periosteal layer of the calcaneal tuberosity taking care to identify, protect, and retract all neurovascular structures at this point and throughout the remainder of surgery. Proper osteotomy placement was confirmed with intraoperative fluoroscopy and a sagittal saw and osteotome was used to perform a medializing calcaneal osteotomy. This was shifted over approximately 8 mm and was temporarily fixated with guidewires. Next, utilizing proper AO fixation FT compression screw technique, two screws were applied to fixate this osteotomy site. Proper placement of hardware and deformity correction was confirmed with lateral and calcaneal axial foot intraoperative xrays. Next, attention was directed to the medial aspect in which a 9 cm utilitarian medial incision was made proximal to the medial malleolus extending to the navicular cuneiform joint level through the skin. Blunt dissection was performed down to the flexor retinaculum in which this was incised and tagged. Next, the sheath encapsulating the posterior tibial tendon was gently entered and the tendon was exposed. It is noted there was a longitudinal split thickness tear measuring approximately 6 cm in length extending from above the malleolus level and extending distally. The diseased bulbous tendon including the tear were ellipsed out and sent to pathology. This was repaired utilizing 4-0 nylon in a tubularized and locking manner. There was also tenosynovitis extending along this posterior tibialis tendon above the medial malleolus and this was debrided. Overall the tendon was over 70% intact and it was not deemed necessary to do a flexor digitorum longus tendon transfer. To address any spring ligament incompetency and to reduce medial column sag, a spring ligament augmentation with internal brace was performed next. This was performed according to standard protocol in which the anchors were placed into the sustentaculum perez and also to the navicular to hold the talar head in a balanced elevated position with hammock technique in relation to the navicular. The medial column was successfully reduced and secured in a balanced manner. Next the foot was taken through passive range of motion and it is noted the flexor tendons gliding smooth manner and there was no entrapment. Intraoperative fluoroscopy was used to confirm adequate deformity correction was achieved. All hardware was in the desired position and trajectory. Copious saline irrigation was performed to both sites. The flexor retinaculum was repaired with nylon suture. Next, the foot was placed in a neutral position to evaluate for any residual forefoot varus or forefoot supinatus in which neither was noted. Additional cotton osteotomy was not deemed necessary at this time. Deep closure to both sites was performed with Vicryl suture. Prior to deep closure on the lateral aspect, it is noted that the bone ledge was rasped and smoothed down. The tourniquet was deflated at this time and brisk capillary refill time was noted to all digits of the left foot. Electrocauterization was performed with direct pressure to control hemostasis. No pulsatile bleeding was noted. Next, the skin was reapproximated utilizing simple and horizontal roni ress techniques. After procedure: The patient tolerated the procedure and anesthesia well. The patient was transported to the PACU with vital signs stable and vascular status intact to the surgical limb. To ice and elevate for pain and inflammation management. Postoperative x-rays were reviewed prior to leaving the operating room as noted. She was provided with postoperative pain medication prescription and was advised on safe and proper use. She has a knee roller and crutches and will maintain a nonweightbearing status. Postoperative orders were entered electronically. She will be discharged home today. She will [facility] the [facility]. Violetta Jordan DPM, FACFAS [facility] Grafts/Implants Used: Arthrex FT compression screws and internal brace Complications None Admit VTE Documentation VTE Present on Admission: No VTE Mechan Device Prophylaxis: SCD's VTE Pharm Prophylaxis ordered?: No Reason prophylaxis not ordered:: Drug Declined by Patient and Procedure Not Indicated
--- NOTE | 2021-05-08 10:54 | DCINST_ITS ---
Discharge Instructions Diet Discharge Diet: No restrictions Activity Discharge Activity: May Shower (only if use shower bag), Use Crutches and - (use knee roller) Ice area for (Minutes): 15 (apply behind the knee. do not apply directy to the surgical foot) Weight Bearing Status: No weight bearing Keep extremity elevated above heart level: Left Leg Dressing / Incision Call your doctor if your incision/area has: Continuous Slow Oozing, Sudden Increased Bleeding, Increased Pain/ Swelling, Increased Redness, Foul Smelling Discharge and Swelling at the incision site Call your doctor if you observe: Fever of 101 or Higher, Numbness or Tingling, Calf discomfort and Uncontrolled pain Change Dressing in: do not change dressing Remove Dressing in: do not remove dressing Cleanse incision/area with: Keep Dressing Clean & Dry Follow Up Care Please Follow Up With: Violetta Jordan DPM When: [facility]. Call [phone] sooner if you have questions or concerns. Test Results: Test results from this visit will be discussed in further detail at your follow-up appointment, if applicable. Discharge Plan Admission Attending Provider: Violetta Jordan Primary Care Provider: Cruzito Chapa Discharge Orders/Prescriptions Prescriptions: New hydrocodone-acetaminophen 7.5-325 mg tablet 1 tab PO Q6H PRN (Reason: pain) 7 Days Qty: 28 RF: 0 No Action atenolol 25 MG tablet 12.5 mg PO DAILY RF: 0 omeprazole 20 MG capsule 20 mg PO QHS RF: 0 fexofenadine [Melanie] 180 mg Tablet 180 mg PO DAILY PRN (Reason: ALLERGIES) RF: 0 lisinopril 10 mg Tablet 10 mg PO DAILY RF: 0 fluticasone propionate [Flonase Allergy Relief] 50 mcg/actuation [place],Suspension 1 spray INTRANASAL DAILY PRN (Reason: ALLERGIES) RF: 0 melatonin 5 mg Capsule 5 mg PO PRN PRN (Reason: Sleep) RF: 0 Referrals / Follow Up: Ivana Sage MD [STAFF PHYSICIAN] - Disposition Disposition (needs filled in before D/C Order can be placed): Home, Self Care
--- NOTE | 2021-05-08 11:10 | RAD_ITS ---
STUDY: X-RAY - LEFT FOOT CLINICAL: Postoperative evaluation status post calcaneal osteotomy and spring ligament repair. TECHNIQUE: 3 view(s) of the foot. COMPARISON: Intraoperative images obtained earlier the same day. FINDINGS: There is a calcaneal osteotomy with 2 orthopedic screws. There is a small plantar calcaneal enthesophyte. Normal visualized subtalar, talonavicular, calcaneocuboid, tarsal and tarsometatarsal articulations. Normal metatarsi. Normal metatarsophalangeal joint of the great toe. Normal tibial and fibular sesamoid bones. Normal interphalangeal joint of the great toe. Normal phalanges of the great toe. Normal second through fifth metatarsophalangeal joints. Normal interphalangeal joints and phalanges of the lesser toes. There is an overlying splint. RAD/Foot min 3 Views IMPRESSION: Uncomplicated calcaneal osteotomy. Electronically Signed: Samuel Mary MD at 13:12 EDT Tel , Service support ,
== END 2021-05-08 14:36 | disposition home or self-care (01) ==
LOC: SDC 05:51 → AC 05:51
PROVIDERS: PCP Family Medicine; Referring Provider Podiatrist; Visit Provider Podiatrist
PROC: (CPT 28300; principal; 2021-05-08 07:15)
DX: M76.822 Posterior tibial tendinitis, left leg (principal); M21.42 Flat foot [pes planus] (acquired), left foot
CPT/HCPCS: 27626; 28300; 73610; 73630; 76000; 87426; 88304; C1713; C9803; J7120; J2405

== ENCOUNTER 2021-08-12 09:54 | Outpatient (CLI) | payer BC, SELFPAY ==
[2021-08-12 12:34] LABS: Anion Gap 6 (5-15); BUN 10 mg/dL (7-18); BUN/Creat Ratio 15.6 RATIO (10-20); Calcium,Total 9.5 mg/dL (8.5-10.1); Chloride 109 mmol/L (98-107); Creatinine, Serum 0.64 mg/dL (0.55-1.02); EST Glomerular Filtration Rate 101 mL/min (>60); Est Glom Filt Rate - Afr Amer 123 mL/min (>60); Glucose 96 mg/dL (74-106); Potassium 3.7 mmol/L (3.5-5.1); Sodium Level 139 mmol/L (136-145)
== END 2021-08-12 23:59 | disposition short-term general hospital (02) ==
LOC: MFPLAB 09:55
PROVIDERS: PCP Family Medicine; Referring Provider Family Medicine; Visit Provider Family Medicine
DX: I10 Essential (primary) hypertension (principal)
CPT/HCPCS: 36415; 80048

== ENCOUNTER 2021-11-05 15:00 | Outpatient (RCR) | payer BC, SELFPAY ==
--- NOTE | 2021-07-20 11:21 | HP.PTEVAL_ITS ---
Patient's Visit Information ONELIA BRIDGES is a 56 year old F referred to Physical Therapy by Dr. Violetta Jordan DPM with a diagnosis of L flat foot reconstruction including calcaneus osteotomy, posterior tibiali. Date of Evaluation: 07/20/21 Physical Therapist: Herbie Greer DPT - Visit Plan Frequency: 1-2x /Week Duration: 4-6 Weeks Plan: Start with ROM into DF, PF. Progress WBing to 25% in CAM with walking and functional activities. Pt. to follow up with physician on 07/27/21. Progress functional tolerance as tolerated with in WBing precautions. Pt. does have a high deductible. I gave her some ROM and stretching exercises to work on as well as slowing increasing tolerance to walking with 25% WBing with crutches. Pt to work on these for 1 week then follow up with physician and PT. - Subjective Pt. is here today for her initial evaluation with diagnosis of L flat foot reconstruction including calcaneus osteotomy, posterior tibialis tendon repair, and repair of spring ligament. Pt. reports hurting her ankle last year when she slipped on ice and twisted her ankle. She had surgery on 05/08/21. Pt. was in progressed to CAM boot ~1 week ago. She is to remain in boot until 12 weeks post op. She is currently 25% Wbing on her L foot. Pt. reports overall doing well. She denies N/T, minimal pain at rest, but does have some soreness with prolonged standing/waking. She has not done much exercises, except for wrapping and icing she has not done much. Pt. is using crutches as prescribed by physician. Pt. is hopeful to get back to all recreational walking, hiking, and normal ADL activities without limitations. - Pain L ankle Pain Intensity (Out of 10): 1 Pain Intensity Range: 0, 4 Comment: mostly at medial aspect, along post tibial incision - Objective POSTURE: Pt. has good posture in stance. Maintains proper 25% WBing in stance. PALPATION: Pt. has normal healing incisions at both medial and lateral ankle. Well healing, no signs of infection. Pt. has have some skin tightness at superior aspect of post tibial incision. No pain with palpation. Pt. did have some edema throughout foot and ankle, 1+ pitting. Improved after elevation. NEURO: Pt. has normal sensation throughout BLEs. Pt. has 2+ Achilles and Patellar tendons. ROM: R ankle full motion no issues. L ankle: AROM: DF -3deg, PF 30deg, INV 8deg, EVR 10deg. PROM: DF 0deg, PF 35deg, INV 10deg, EVR 12deg. Pt. reports no pain, just tightness at each respective sides. Normal knee ROM bilaterally. MMT: RLE 5/5 throughout. LLE: ankle: DF 4/5, PF 4/5, EVR 3/5, INV 3/5. Toe flexion 4/5, toe ext 4/5.; knee 5/5 flexion/extension. GAIT: Pt. has good ambulating in CAM boot with crutches. She maintains proper WBing throughout gait cycle. No pain noted. - Balance/Special Test Scores Lower Extremity Functional Score: 23 - Goals Goal 1:: LTG: Pt. to be I with HEP. Goal Time Frame: 4-6 Weeks Goal 2:: STG: Pt. to have increased L ankle ROM to 10deg of DF, and 45deg of PF. Goal Time Frame: 2 Weeks Goal 3:: LTG: Pt. to ambulate 150' feet with full WBing in CAM boot without increase in symptoms. Goal Time Frame: 6-8 Weeks Goal 4:: STG: Pt. to sleep throughout the night without increase in symptoms. Goal Time Frame: 2-4 Weeks Goal 5:: LTG: Pt. to have increased LLE strength to 4+/5 throughout without increase in symptoms. Goal Time Frame: 6-8 Weeks - Rehabilitation Potential Physical Therapy Diagnosis: Pt. has signs and symptoms consistent with L flat foot reconstruction including calcaneus osteotomy, posterior tibialis tendon repair, and repair of spring ligament. DOS on 05/08/21. Pt. has subsequent hypomobility, weakness, difficulty with walking and increased pain. Pt. would benefit from PT to work on the above limitations progressing back to prior level of function without limitation. Rehabilitation Potential: Excellent - Anticipated Interventions Patient/Client Instruction: Educate patient on: Condition, Plan of Care, Risk Factors, Benefits of Fitness Program For the Purpose of:: To foster healthy habits, To improve decision making, To facilitate caregiver knowledge, To improve self management, To prevent re- injury, To improve ability to perform tasks related to life management Therapeutic Exercise to Include: Strength training, Power training, Balance training, Body mechanics, Postural training, Flexibilty training, Gait and locomotor training, Passive ROM, Active ROM For the Purpose of:: To decrease pain, To decrease swelling/inflammation, To increase ROM, To improve nutrient delivery to tissue, To improve ability of physical actions for home/community/work/leisure, To improve gait and locomotor functions, To improve health of tissue, To decrease soft tissue restriction, To increase flexibility/ROM, To improve endurance TENS: Yes Cryotherapy (ice pack, ice massage): Yes Ultrasound (thermal/non thermal): Yes Vasopneumatic device: Yes For the Purpose of:: To decrease pain, To decrease swelling/inflammation, To increase ROM, To improve nutrient delivery to tissue, To increase oxygenation perfusion, To improve muscle performance and motor function Thank you for the opportunity to evaluate your patient. For Medicare and Medicare HMO plans, please review the plan of care and approve it. It will need to be FAXED BACK to us at [phone] for Medicare purposes. For Medicare only, by signing this I certify the plan of care. Please let me know if there are questions or concerns regarding this plan of care. Physician Signature: Date:
--- NOTE | 2021-09-24 07:22 | HP.PTREVAL_ITS ---
Dr. Violetta Jordan, DPM, It has been my pleasure to treat ONELIA BRIDGES over the last 7 visits for L flat foot reconstruction including calcaneus osteotomy, posterior tibiali. Please see the progress note below for an update on the physical therapy plan of care! Subjective: Pt. reports overall doing okay. Pt. arrives with ASO brace and shoe on. She continues to reports some soreness along post tib tendon path medial to malleolus. Pt. reports minimal pain in the rest of her foot//ankle. Pt. is mostly concerned about her swelling. Objective/Function: Pt. did well with strengthening and stretching today. She is progressing with all exercises. She continues to have increased swelling. She has been working a bit more and on her foot more. Pt. has improved DF today. She has been working on strengthening and stretching at home. Pt. reports feeling like her progress is slow. Pt. has improved gait pattern with decreased hyper knee extension during stance phase of gait. She ascending stairs well. She has 8deg of DF with over pressure, 6deg actively. Pt. needs to continue to stretch frequently. He strength is pretty good 4+/5 throughout, mild increase in symptoms with EVR. She does continue to have increased edema in her R foot. I continue to talk to her about compression, elevation and massage to assist with edema management. Plan Plan: Pt. to follow up with physician to determine best course of action. Balance/Gait/Functional tests - Balance/Special Test Scores Lower Extremity Functional Score: 23 Goals Goal 1:: LTG: Pt. to be I with HEP. Goal Time Frame: 4-6 Weeks Goal Progress: Progressing Goal 2:: STG: Pt. to have increased L ankle ROM to 10deg of DF, and 45deg of PF. Goal Time Frame: 2 Weeks Goal Progress: Progressing Goal 3:: LTG: Pt. to ambulate 150' feet with full WBing in CAM boot without increase in symptoms. Goal Time Frame: 6-8 Weeks Goal Progress: Goal Met Goal 4:: STG: Pt. to sleep throughout the night without increase in symptoms. Goal Time Frame: 2-4 Weeks Goal Progress: Progressing Goal 5:: LTG: Pt. to have increased LLE strength to 4+/5 throughout without increase in symptoms. Goal Time Frame: 6-8 Weeks Goal Progress: Progressing Anticipated Interventions Patient/Client Instruction: Educate patient on: Condition, Plan of Care, Risk Factors, Benefits of Fitness Program For the Purpose of:: To foster healthy habits, To improve decision making, To facilitate caregiver knowledge, To improve self management, To prevent re- injury, To improve ability to perform tasks related to life management Therapeutic Exercise to Include: Strength training, Power training, Balance training, Body mechanics, Postural training, Flexibilty training, Gait and locomotor training, Passive ROM, Active ROM For the Purpose of:: To decrease pain, To decrease swelling/inflammation, To increase ROM, To improve nutrient delivery to tissue, To improve ability of physical actions for home/community/work/leisure, To improve gait and locomotor functions, To improve health of tissue, To decrease soft tissue restriction, To increase flexibility/ROM, To improve endurance TENS: Yes Cryotherapy (ice pack, ice massage): Yes Ultrasound (thermal/non thermal): Yes Vasopneumatic device: Yes For the Purpose of:: To decrease pain, To decrease swelling/inflammation, To increase ROM, To improve nutrient delivery to tissue, To increase oxygenation perfusion, To improve muscle performance and motor function Please do not hesitate to contact me at [phone] by phone or if you have questions or concerns regarding this new plan of care! Sincerely, Herbie Greer DPT
== END 2021-11-05 19:00 | disposition home or self-care (01) ==
LOC: PT 15:00
PROVIDERS: PCP Family Medicine; Referring Provider Podiatrist; Visit Provider Podiatrist
DX: Z98.890 Other specified postprocedural states (principal)
CPT/HCPCS: 97035; 97110; 97161

== ENCOUNTER → 2022-11-29 | Outpatient (CLI) | payer BC, SELFPAY ==
--- NOTE | 2022-11-29 15:43 | RAD_ITS ---
INDICATION: SCOLIOSIS EXAMINATION/TECHNIQUE: X-RAY - XR Spine Entire Thoracic and Lumbar One View (W skull, cervical and sacral spine if peformed) 1 IMAGES COMPARISON: None. LIMITATIONS: None. FINDINGS: Mild thoracic curve convex left. No significant lumbar curve. Vertebral bodies are grossly normal configuration on this single projection. No obvious subluxation. No paravertebral soft tissue mass identified. Reticular opacities at the right lung base likely scarring or atelectasis. The lungs are not well assessed due to the technique. RAD/Scoliosis 1 view IMPRESSION: Mild thoracic scoliosis. Consider dedicated spine x-rays or MRI as clinically indicated. Electronically Signed: Mari Ng MD at 7:54 EDT ,
== END | disposition home or self-care (01) ==
LOC: MTRAD 15:42
PROVIDERS: PCP Family Medicine; Referring Provider Family Medicine; Visit Provider Family Medicine
DX: M41.9 Scoliosis, unspecified (principal)
CPT/HCPCS: 72081

== ENCOUNTER → 2023-01-04 | Outpatient (CLI) | payer BC, SELFPAY ==
[2023-01-04 13:50] LABS: Vitamin B12 447 pg/mL (211-911); Vitamin D,25 Hydroxy 61.2 ng/mL
[2023-01-04 13:54] LABS: Erythrocyte Sedimentation Rate 10 mm/hr (0-30)
[2023-01-04 13:56] LABS: Absolute Lymphocyte Count 1.72 X10^3/uL (0.83-4.51); Absolute Neutrophil Count 4.3 X10^3/uL (2.0-7.7); Basophil# 0.06 X10^3/uL; Basophil% 0.9 % (0-1); Eosinophil# 0.15 X10^3/uL; Eosinophils% 2.2 % (0-5); Hematocrit 43.1 % (37-47); Hemoglobin 14.6 g/dL (12.0-15.0); Lymphocyte # 1.72 X10^3/ul (0.83-4.51); Lymphocyte % 25.6 % (19-41); Mean Corp Hgb Conc 33.9 g/dL (32-36); Mean Corpuscular Hgb 29.4 pg (27.0-32.0); Mean Corpuscular Volume 86.9 fL (81-99); Mean Platelet Vol. 10.2 fl (6.2-12.0); Monocyte# 0.43 X10^3/uL; Monocyte% 6.4 % (0-10); NRBC Flagged by Analyzer 0 % (0-5); Neutrophil # 4.32 X10^3/uL (2.7-7.7); Neutrophil % 64.5 % (47-70); Platelet Count 227 K/mm3 (150-450); RBC Distribution Width CV 13.2 % (11.6-14.6); Red Blood Count 4.96 M/mm3 (4.2-5.4); White Blood Count 6.7 K/mm3 (4.4-11.0)
[2023-01-04 13:59] LABS: ALB/GLOB Ratio 0.9 RATIO (0.9-2.4); AST(SGOT) 20 U/L (15-37); Alanine Aminotransfer ALT/SGPT 46 U/L (13-56); Albumin, Serum 3.6 g/dL (3.2-5.0); Alkaline Phosphatase 94 U/L (45-117); Anion Gap 6 (5-15); BUN 11 mg/dL (7-18); BUN/Creat Ratio 16.9 RATIO (10-20); CRP 4.35 mg/L (0.0-3.0); Calcium,Total 9.3 mg/dL (8.5-10.1); Chloride 108 mmol/L (98-107); Creatinine, Serum 0.65 mg/dL (0.55-1.02); EST Glomerular Filtration Rate 99 mL/min (>60); Est Glom Filt Rate - Afr Amer 120 mL/min (>60); Ferritin 34 ng/mL (8-252); Free T3 2.8 pg/mL (2.18-3.98); Globulin 3.8 g/dL (2.2-4.2); Glucose 93 mg/dL (74-106); Potassium 3.5 mmol/L (3.5-5.1); Protein, Total 7.4 g/dL (6.4-8.2); Rheumatoid Factor < 10.0 IU/mL (<15); Sodium Level 141 mmol/L (136-145); T4 Free Direct 1.83 ng/dL (0.76-1.46); Thyroid Stim Hormone (TSH) 1.54 uIU/mL (0.358-3.74)
[2023-01-06 14:09] LABS: ANTINUCLEAR ANTIBODIES DIRECT Negative (Negative)
[2023-01-06 15:08] LABS: Thyroglobulin Antibody < 1.0 IU/mL (0.0-0.9); Thyroid Peroxidase AB < 9 IU/mL (0-34)
== END | disposition home or self-care (01) ==
LOC: MFPLAB 09:47
PROVIDERS: PCP Family Medicine; Visit Provider Family Medicine
DX: M79.10 Myalgia, unspecified site (principal); I10 Essential (primary) hypertension; R53.83 Other fatigue
CPT/HCPCS: 36415; 80053; 82306; 82607; 82728; 83036; 84439; 84443; 84481; 85025; 85652; 86038; 86140; 86376; 86431; 86800

== ENCOUNTER 2023-01-26 10:00 | Outpatient (RCR) | payer BC, SELFPAY ==
--- NOTE | 2022-09-28 10:27 | HP.PTEVAL ---
Patient's Visit Information ONELIA BRIDGES is a 57 year old F referred to Physical Therapy by Ana Luisa Patel with a diagnosis of Left Osteotomy Calcaneus and Left Granados Osteotomy : 08/05/22.. Date of Evaluation: 09/28/22 Physical Therapist: Laura Luna DPT - Visit Plan Frequency: 2x /Week Duration: 4 Weeks Plan: CAM Boot at home- gentle WB in shoe in clinic for weight shift and LIGHT exercise. seated HR/TR, proprioception from sitting with progression as tolerated, GENTLE! HEP Given IE: Ankle ROM, Gastroc Stretch with towel, weight shifts - Subjective Flat foot with pressure on Tibial Tendon- 2 years ago was having tendonitis and fell on the ice and it tore- went in locally and they ended up doing a osteotomy on the heel and repaired the tendon- did rehab it just never really got better- long story short went to [facility] and Dr. Tate did a Left Osteotomy Calcaneus and Left Granados Osteotomy DOS: 08/05/22. She was NWB until about a week ago Tuesday- so crutches and knee rollator. Now she has the okay to be WBAT. She can walk some in the CAM boot and weaning off the crutch. Does not sleep in the boot- not disturbed. Since she started walking she has more soreness in the heel and occasional pain on the inside tendon and if she moves a certain way on the outside. Worst: 10 Agg: being up on it. Eases: elevation, ice, rest, Advil/Tylenol PRN. Best: 07/27. Describes the pain as more dull and achy pains. Does have some zing pains- Does have some N/T in the lateral 3 toes- comes and goes. Does not radiate up the chain to the knee, hip or back. She is very busy has a special needs daughter. More active prior to all of these issues. Work: does not work outside of her home. PMHx: HTN Meds: hydrochlorothiazide. - Objective Posture: FH, RS- can correct but does not maintain. Gait: antalgic- decreased stance on the left LE with poor heel/toe pattern- CAM boot and axillary crutch. HR/TR: can lift toes SLS: weight shift but does not take hands off plinth due to imbalance. Observation: incision healing well no s/s of infection. Edema: Figure 8: 52.5 cm, Mets:21.5 Malls: 27.5 cm . ROM: DF: 5 degrees 10 degrees with over pressure, PF: 40 degrees, Inver: 20 degrees Ever: 20 degrees. Strength: Knee: 4+/5, Ankle: 4+/5. Flex: HS: severe, Solues: severe. Sensation: WNL to gross touch. Palpation: tender along medial and lateral malleolus - Balance/Special Test Scores Lower Extremity Functional Score: 24 - Goals Goal 1:: Patient will be I with HEP and progression Goal Time Frame: 4-6 Weeks Goal 2:: Patient will ambulate >300 feet with a normalized gait pattern Goal Time Frame: 4-6 Weeks Goal 3:: Patient will SLS for 15 sec without LOB Goal Time Frame: 4-6 Weeks Goal 4:: Patient will report 80% improvement Goal Time Frame: 4-6 Weeks - Rehabilitation Potential Physical Therapy Diagnosis: Patient presents with hypomobility- she has decreased LE ROM, strength, proprioception, flex and muscular endurance leading to abnormal gait pattern s/p Left Osteotomy Calcaneus and Left Granados Osteotomy 08/05/22. Rehabilitation Potential: Good - Anticipated Interventions Patient/Client Instruction: Educate patient on: Benefits of Fitness Program Therapeutic Exercise to Include: Strength training, Endurance training, Balance training, Coordination, Agility training, Body mechanics, Postural training, Flexibilty training, Gait and locomotor training, Neuromotor development, Dynamic Lumbar Stabilization, Scapular Strength/Stabilization For the Purpose of:: To improve muscle performance and motor function TENS: Yes Cryotherapy (ice pack, ice massage): Yes Thermo therapy (hot pack): Yes Thank you for the opportunity to evaluate your patient. For Medicare and Medicare HMO plans, please review the plan of care and approve it. It will need to be FAXED BACK to us at [phone] for Medicare purposes. For Medicare only, by signing this I certify the plan of care. Please let me know if there are questions or concerns regarding this plan of care. Physician Signature: Date:
--- NOTE | 2022-10-27 10:59 | HP.PTREVAL ---
RUKHSANA CAMPOVERDE, It has been my pleasure to treat ONELIA BRIDGES over the last 8 visits for Left Osteotomy Calcaneus and Left Granados Osteotomy : 08/05/22.. Please see the progress note below for an update on the physical therapy plan of care! Subjective: Patient reports that she feels that she is doing decent. Saw 2 weeks ago and the bone is healed- she has pain in the AM on the lateral aspect and more medial side since she has been out of the boot. When she is going out and about she is wearing the ankle brace. 09/24. Objective/Function: Posture: FH, RS- can correct but does not maintain. Gait: slightly antalgic- decreased stance on the left LE with poor heel/toe pattern- brace/tennis shoe and no AD HR/TR: able with UE A SLS: weight shift but does not take hands off wall due to imbalance. Observation: incision healing well no s/s of infection. Edema: Figure 8: 53 cm, Mets: 21 Malls: 27 cm . ROM: DF: 5 degrees 10 degrees with over pressure, PF: 40 degrees, Inver: 20 degrees Ever: 20 degrees. Strength: Knee: 4+/5, Ankle: 4+/5. Flex: HS: severe, Solues: severe. Sensation: WNL to gross touch. Palpation: tender along medial and lateral malleolus Plan Plan: 10/27/22: 60 min apt with focus on full LE and core strength/stabilization, gait and proprioception- US for pain mgmt and inflammation control. IE: CAM Boot at home- gentle WB in shoe in clinic for weight shift and LIGHT exercise. seated HR/TR, proprioception from sitting with progression as tolerated, GENTLE! Balance/Gait/Functional tests - Balance/Special Test Scores Lower Extremity Functional Score: 39 Goals Goal 1:: Patient will be I with HEP and progression Goal Time Frame: 4-6 Weeks Goal 2:: Patient will ambulate >300 feet with a normalized gait pattern Goal Time Frame: 4-6 Weeks Goal 3:: Patient will SLS for 15 sec without LOB Goal Time Frame: 4-6 Weeks Goal 4:: Patient will report 80% improvement Goal Time Frame: 4-6 Weeks Anticipated Interventions Patient/Client Instruction: Educate patient on: Benefits of Fitness Program Therapeutic Exercise to Include: Strength training, Endurance training, Balance training, Coordination, Agility training, Body mechanics, Postural training, Flexibilty training, Gait and locomotor training, Neuromotor development, Dynamic Lumbar Stabilization, Scapular Strength/Stabilization For the Purpose of:: To improve muscle performance and motor function TENS: Yes Cryotherapy (ice pack, ice massage): Yes Thermo therapy (hot pack): Yes Please do not hesitate to contact me at [phone] by phone or if you have questions or concerns regarding this new plan of care! Sincerely, SUBHASH DobsonT
--- NOTE | 2023-01-26 11:28 | HP.PTDCSUM ---
Discharge Summary D/C summary: It has been my pleasure to treat ONELIA BRIDGES referred by RUKHSANA CAMPOVERDE, with the diagnosis of Left Osteotomy Calcaneus and Left Granados Osteotomy DOS: 08/05/22. for a total of 18 visit(s). Discharge Date: 01/26/23 Please see the following information for a summary of their discharge status. Subjective Subjective: Pt. reports ankle is doing well. She is still having some L sided low back pain, especially with working out side. Pain Left ankle: Pain Intensity (Out of 10): 0 Thoracic spine: Pain Intensity (Out of 10): 1 Lumbar spine: Pain Intensity (Out of 10): 1 Overall Improvement % Improvement: 85 Objective Objective/Function: Pt's ankle is overall doing well. She has good ROM and good strength. Her posture and gait has also improved. Pt. reports minimal issues with her ankle. She does have some issues with her upper lumbar/lower thoracic spine with increased activities. It appears to be more muscular in nature. I gave her some exercises to work on mobility and strengthening. She is also to progress with a walking program with her ankle and LE strengthening. She plans to do so in local gym. Goals Goal 1:: Patient will be I with HEP and progression Goal Progress: Goal Met Goal 2:: Patient will ambulate >300 feet with a normalized gait pattern Goal Progress: Goal Met Goal 3:: Patient will SLS for 15 sec without LOB Goal Progress: Goal Met Goal 4:: Patient will report 80% improvement Goal Progress: Goal Met Plan Plan: Pt. to be DC from PT at this point in time. D/C Information Discharge Comments: Pt. was treated with ankle ROM then with strengthening for her post surgical ankle. Pt. is doing much better and is not c/o issues at this point in time. She is to start and progress her walking program and gym exercises as tolerated. Pt. to be DC from PT at this point in time. d/c sentence: If there are questions or concerns regarding this patient's physical therapy, please feel free to call me at [phone]. Thank you for the referral of this patient. Sincerely, Herbie Cummings Sipos, DPT Balance/Gait/Functional tests Balance/Special Test Scores Lower Extremity Functional Score: 61
== END 2023-01-26 12:53 | disposition home or self-care (01) ==
LOC: PT 10:00
PROVIDERS: PCP Family Medicine
DX: M76.822 Posterior tibial tendinitis, left leg (principal); Z98.890 Other specified postprocedural states
CPT/HCPCS: 97035; 97110; 97161; 97164

== ENCOUNTER 2023-10-14 16:00 | Outpatient (RCR) | payer BC, SELFPAY ==
--- NOTE | 2023-08-23 13:40 | HP.PTEVAL_ITS ---
Patient's Visit Information Visit Information Visit Information: ONELIA BRIDGES is a 58 year old F referred to Physical Therapy by Dr. Brad Tate MD with a diagnosis of L ankle pain with Achilles tendonosis. Date of Evaluation: 08/23/23 Physical Therapist: Herbie Greer DPT Visit Plan Frequency: 1-2x /Week Duration: 6 Weeks Plan: 1) IASTM/STM to L achilles tendon/gastroc 2) Gentle joint mobs to increase L ankle DF 3) OKC L ankle eccentrics...progress to WB eccentric/pre-gait act as appropriate 4) Address foot intrinsic and hip strength prn to normalize gait pattern Focus on pain management and calming down pain, then begin gentle eccentric strengthening and stability ex. L ankle fairly stiff, should address before doing heavy WBing strength act. Subjective Subjective: Pt presents to PT with L ankle pain. Pt began walking more in 2022 after getting out of walking boot and has been attempting to do exercises, rest, and ice for pain but has not been able to get rid of. Pt points to L Achilles where majority of pain is, swelling and tight. Surgeon felt joint was thick, will do an MRI if not better in 6 weeks. Pain is worst when walking, low at first and then will increase and is much more noticeable after approx. 15 minutes. Stairs feel choppy. Pt has been doing heel raises at home, if does a few days in a row then it becomes irritated. Pt feels tennis shoes rub and increase pain, backless shoes. Pain Left Ankle: Pain Intensity (Out of 10): 2 Pain Intensity Range: 0 and 7 Objective Objective: ROM: L ankle DF 5, PF 40, INV 20, EV 20 MMT: 4/5 L ankle strength, some pain with standing heel raises, unable to perform unilateral HR on L SLS: 3s L, 5s R with medial/lateral LOB GAIT: lacking heel-toe pattern on L side, little to no ant/ tibial translation JOINT MOBILITY: hypomobile L ankle, felt stretch with post talocrural grade 2 joint mob STAIRS: reciprocal pattern, pain with push off during ascending and controlled descent on L ankle PALPATION: some mild edema in medial/lateral ankle, mild thickening/tightness of L achilles, TTPL achilles sup to distal insertion Balance/Special Test Scores Lower Extremity Functional Score: 43 Goals Goal 1:: Pt will amb. 300+ ft with <2/10 pain and normalized gait pattern Goal Time Frame: 4-6 Weeks Goal 2:: Pt will achieve at least 15 deg. 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 Pt would benefit from PT services to address pain, decreased tissue extensibility, L ankle hypomobility, and eccentric strength of plantar flexors needed to improve tolerance to walking and ADLs. Rehabilitation Potential: Good Anticipated Interventions Patient/Client Instruction: Educate patient on: Condition and Plan of Care For the Purpose of:: To decrease pain, To decrease swelling/inflammation, To increase ROM, To improve nutrient delivery to tissue, To improve muscle performance and motor function, To improve ability to perform ADL's, To increase tolerance to activity/condition/position, To improve performance and independence with ADL's, To improve ability of physical actions for home/community/work/leisure, To improve gait and locomotor functions, To improve health of tissue, To decrease soft tissue restriction, To increase flexibility/ROM, To improve balance, To assume or resume ADL's, To reduce risk of recurrence, To improve health and function, To improve self management, To improve ability to perform tasks related to life management and To improve tolerance to ADL's Therapeutic Exercise to Include: Strength training, Balance training and Passive ROM For the Purpose of:: To decrease pain, To decrease swelling/inflammation, To increase ROM, To improve ability to perform ADL's, To increase tolerance to activity/condition/position, To improve health of tissue, To decrease soft tissue restriction, To increase flexibility/ROM and To improve tolerance to ADL's Manual Therapy Techniques to Include: Mobilization, Passive ROM and Soft tissue mobilization For the Purpose of:: To decrease pain, To decrease swelling/inflammation, To increase ROM, To improve health of tissue, To decrease soft tissue restriction, To increase flexibility/ROM, To improve self management, To improve ability to perform tasks related to life management and To improve tolerance to ADL's Iontophoresis (with Dexamethozone, with Acetic acid): Yes TENS: Yes Cryotherapy (ice pack, ice massage): Yes Ultrasound (thermal/non thermal): Yes For the Purpose of:: To decrease pain, To decrease swelling/inflammation, To inc rease ROM, To improve muscle performance and motor function, To improve ability to perform ADL's, To increase tolerance to activity/condition/position, To improve health of tissue, To decrease soft tissue restriction, To increase flexibility/ROM, To improve self management and To improve tolerance to ADL's Text: Thank you for the opportunity to evaluate your patient. For Medicare and Medicare HMO plans, please review the plan of care and approve it. It will need to be FAXED BACK to us at [phone] for Medicare purposes. For Medicare only, by signing this I certify the plan of care. Please let me know if there are questions or concerns regarding this plan of care. Physician Signature: Date:
--- NOTE | 2023-09-21 10:46 | HP.PTREVAL ---
Re-Evaluation Intro: Dr. Brad Tate MD, It has been my pleasure to treat ONELIA BRIDGES over the last 6 visits for L ankle pain with Achilles tendonosis. Please see the progress note below for an update on the physical therapy plan of care! Subjective Subjective: Pt reports some improvement in sxs but is still having difficulty with walking. Pt has some relief with wearing a heel, can feel it when wearing tennis shoes to grocery store. Pt is getting up to 5 or 6/10 at worst when walking. Objective Objective/Function: ROM: L ankle DF to neutral with pull in calf, slight increase following stretching, 5 deg active EV, 20deg active IV, 50 deg PF GAIT: normalized pattern, pain with toe off of L foot PALPATION: some tenderness in distal achilles Pt overall demo's decreased pain and irritability with WB act, but still greatly limited by tightness in calf/ankle. Plan Plan Plan: 1) IASTM/STM to L achilles tendon/gastroc 2) Gentle joint mobs to increase L ankle DF 3) OKC L ankle eccentrics...progress to WB eccentric/pre-gait act as appropriate 4) Address foot intrinsic and hip strength prn to normalize gait pattern Pt to continue 1x per week for 4 weeks, working on low level strengthening and dynamic stability once full ROM has returned. Balance/Gait/Functional tests Balance/Special Test Scores Lower Extremity Functional Score: 43 Goals Goals Goal 1:: Pt will amb. 300+ ft with <2/10 pain and normalized gait pattern Goal Time Frame: 4-6 Weeks Goal Progress: Progressing Goal 2:: Pt will achieve at least 15 deg. 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 with <2/10 pain and appropriate ankle ROM Goal Time Frame: 4-6 Weeks Goal Progress: Goal Met Anticipated Interventions Anticipated Interventions Patient/Client Instruction: Educate patient on: Condition and Plan of Care For the Purpose of:: To decrease pain, To decrease swelling/inflammation, To increase ROM, To improve nutrient delivery to tissue, To improve muscle performance and motor function, To improve ability to perform ADL's, To increase tolerance to activity/condition/position, To improve performance and independence with ADL's, To improve ability of physical actions for home/community/work/leisure, To improve gait and locomotor functions, To improve health of tissue, To decrease soft tissue restriction, To increase flexibility/ROM, To improve balance, To assume or resume ADL's, To reduce risk of recurrence, To improve health and function, To improve self management, To improve ability to perform tasks related to life management and To improve tolerance to ADL's Therapeutic Exercise to Include: Strength training, Balance training and Passive ROM For the Purpose of:: To decrease pain, To decrease swelling/inflammation, To increase ROM, To improve ability to perform ADL's, To increase tolerance to activity/condition/position, To improve health of tissue, To decrease soft tissue restriction, To increase flexibility/ROM and To improve tolerance to ADL's Manual Therapy Techniques to Include: Mobilization, Passive ROM and Soft tissue mobilization For the Purpose of:: To decrease pain, To decrease swelling/inflammation, To increase ROM, To improve health of tissue, To decrease soft tissue restriction, To increase flexibility/ROM, To improve self management, To improve ability to perform tasks related to life management and To improve tolerance to ADL's Iontophoresis (with Dexamethozone, with Acetic acid): Yes TENS: Yes Cryotherapy (ice pack, ice massage): Yes Ultrasound (thermal/non thermal): Yes For the Purpose of:: To decrease pain, To decrease swelling/inflammation, To increase ROM, To improve muscle performance and motor function, To improve ability to perform ADL's, To increase tolerance to activity/condition/position, To improve health of tissue, To decrease soft tissue restriction, To increase flexibility/ROM, To improve self management and To improve tolerance to ADL's Re-Evaluation Ending Re-evaluation ending: Please do not hesitate to contact me at [phone] by phone or if you have questions or concerns regarding this new plan of care! Sincerely, Herbie Greer DPT
== END 2023-10-14 19:00 | disposition home or self-care (01) ==
LOC: PT 16:00
PROVIDERS: PCP Family Medicine; Referring Provider Orthopaedic Surgery; Visit Provider Orthopaedic Surgery
DX: M76.61 Achilles tendinitis, right leg (principal)
CPT/HCPCS: 97110; 97140; 97161; 97164; 97530

== ENCOUNTER → 2024-08-09 | Outpatient (CLI) | payer BC, SELFPAY ==
--- NOTE | 2024-08-09 16:28 | MRI_ITS ---
STUDY: MRI LEFT KNEE REASON FOR EXAM: Female, 59 years old. Left knee pain. Anterior pain, slipped and fell on knee approximately one and half years ago. TECHNIQUE: Standardized fat and water weighted pulse sequences were obtained in all 3 orthogonal planes. COMPARISON: None. FINDINGS: Normal medial meniscus. Normal hyaline cartilage of the medial femorotibial compartment. Normal medial femoral condyle and tibial plateau. Normal medial collateral ligamentous complex (MCL). Normal distal semimembranosus, gracilis and semitendinosus tendons. Normal lateral meniscus. Normal hyaline cartilage of the lateral femorotibial compartment. Normal lateral femoral condyle and tibial plateau. Normal proximal tibiofibular articulation. Normal lateral collateral (fibular) ligament. Normal popliteus tendon. Normal biceps femoris tendon. Normal anterior cruciate ligament (ACL). Normal posterior cruciate ligament (PCL). There is focal moderate grade chondromalacia along the patellar apex with underlying subchondral edema/cyst formation (axial T2 series 2 images 9-10). Congruent patellofemoral articulation. Normal medial and lateral patellar retinaculum. Normal quadriceps tendon. Normal patellar tendon. Normal Hoffa''s fat pad. There is a tiny joint effusion. There is a tiny popliteal cyst. The soft tissues are unremarkable. The otherwise visualized osseous structures are unremarkable. 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 Tiny joint effusion with a tiny popliteal cyst. No discrete meniscal tear or acute ligamentous injury. Electronically Signed: Julio Mixon MD at 8:06 EST ,
== END | disposition home or self-care (01) ==
PROVIDERS: PCP Family Medicine; Referring Provider Family Medicine; Visit Provider Family Medicine
DX: M25.562 Pain in left knee (principal)
CPT/HCPCS: 73721

== ENCOUNTER → 2024-08-30 | Outpatient (CLI) | payer BC, SELFPAY ==
[2024-08-30 08:09] LABS: Absolute Lymphocyte Count 2.11 X10^3/uL (0.83-4.51); Absolute Neutrophil Count 5.7 X10^3/uL (2.0-7.7); Basophil# 0.07 X10^3/uL; Basophil% 0.8 % (0-1); Eosinophil# 0.24 X10^3/uL; Eosinophils% 2.7 % (0-5); Hemoglobin 14.3 g/dL (12.0-15.0); Lymphocyte # 2.11 X10^3/ul (0.83-4.51); Lymphocyte % 23.5 % (19-41); Mean Corp Hgb Conc 33.3 g/dL (32-36); Mean Corpuscular Hgb 28.9 pg (27.0-32.0); Mean Platelet Vol. 9.2 fl (6.2-12.0); Monocyte# 0.77 X10^3/uL; Monocyte% 8.6 % (0-10); NRBC Flagged by Analyzer 0 % (0-5); Neutrophil # 5.73 X10^3/uL (2.7-7.7); Neutrophil % 63.8 % (47-70); Platelet Count 210 K/mm3 (150-450); RBC Distribution Width CV 13.4 % (11.6-14.6); RBC Distribution Width SD 41.6 fl (35.1-43.9); Red Blood Count 4.94 M/mm3 (4.2-5.4)
[2024-08-30 09:40] LABS: Vitamin D,25 Hydroxy 64.9 ng/mL
[2024-08-30 10:44] LABS: AST(SGOT) 20 U/L (15-37); Alanine Aminotransfer ALT/SGPT 39 U/L (13-56); Albumin, Serum 3.5 g/dL (3.2-5.0); Alkaline Phosphatase 91 U/L (45-117); Anion Gap 7 (5-15); BUN 14 mg/dL (7-18); BUN/Creat Ratio 19.5 RATIO (10-20); Calcium,Total 9.3 mg/dL (8.5-10.1); Chloride 107 mmol/L (98-107); Cholesterol 142 mg/dL (200); Creatinine, Serum 0.72 mg/dL (0.55-1.02); EST Glomerular Filtration Rate 88 mL/min (>60); Est Glom Filt Rate - Afr Amer 107 mL/min (>60); Globulin 3.6 g/dL (2.2-4.2); Glucose 101 mg/dL (74-106); High Density Lipoprotein 59 mg/dL; Potassium 3.7 mmol/L (3.5-5.1); Protein, Total 7.1 g/dL (6.4-8.2); Sodium Level 138 mmol/L (136-145); Triglycerides 146 mg/dL; Very Low Density Lipoprotein 29 mg/dL (5-40)
== END | disposition home or self-care (01) ==
LOC: LAB 07:46
PROVIDERS: PCP Family Medicine; Referring Provider Family Medicine; Visit Provider Family Medicine
DX: I10 Essential (primary) hypertension (principal); R53.83 Other fatigue
CPT/HCPCS: 36415; 80053; 80061; 82306; 84443; 85025

== ENCOUNTER 2024-10-19 10:02 | Outpatient (RCR) | payer BC, SELFPAY | END 2024-10-19 19:00 | disposition home or self-care (01) | LOC: PT 10:02 | PROVIDERS: PCP Family Medicine; Referring Provider Orthopaedic Surgery; Visit Provider Orthopaedic Surgery | DX: M22.42 Chondromalacia patellae, left knee (principal) ==

== ENCOUNTER → 2025-01-15 | Outpatient (CLI) | payer BC, SELFPAY ==
[2025-01-15 15:57] LABS: Hematocrit 43.2 % (37-47); Hemoglobin 14.6 g/dL (12.0-15.0); Immature Granulocytes Count 0.040 X10^3/uL (0.0-0.0); Mean Corp Hgb Conc 33.8 g/dL (32-36); Mean Corpuscular Volume 87.4 fL (81-99); Mean Platelet Vol. 10.1 fl (6.2-12.0); NRBC Flagged by Analyzer 0 % (0-5); Platelet Count 187 K/mm3 (150-450); RBC Distribution Width CV 13.2 % (11.6-14.6); RBC Distribution Width SD 41.7 fl (35.1-43.9); Red Blood Count 4.94 M/mm3 (4.2-5.4); White Blood Count 6.6 K/mm3 (4.4-11.0)
[2025-01-15 17:07] LABS: AST(SGOT) 25 U/L (<=31); Alanine Aminotransfer ALT/SGPT 39 U/L (<=34); Albumin, Serum 4.3 g/dL (3.5-5.0); Alkaline Phosphatase 90 U/L (35-104); Anion Gap 12 (5-15); BUN 13 mg/dL (4-19); BUN/Creat Ratio 22.9 RATIO (10-20); Calcium,Total 9.7 mg/dL (7.6-11.0); Carbon Dioxide 22.4 mmol/L (21.0-32.0); Chloride 107 mmol/L (98-108); Globulin 2.6 g/dL (2.2-4.2); Glucose 94 mg/dL (70-99); Potassium 3.9 mmol/L (3.3-5.1)
[2025-01-15 17:08] LABS: Vitamin B12 632 pg/mL (180-914)
== END | disposition home or self-care (01) ==
LOC: MFPLAB 12:35
PROVIDERS: PCP Family Medicine; Referring Provider Family Medicine; Visit Provider Family Medicine
DX: I10 Essential (primary) hypertension (principal); R53.83 Other fatigue
CPT/HCPCS: 36415; 80053; 82607; 84443; 85025